=== PATIENT | female | born 1970 | race Caucasian/White ===

== ENCOUNTER → 2021-08-22 16:47 | Outpatient (CLI) | payer OTHER, SELFPAY | PROVIDERS: Referring Provider Physician Assistant; Visit Provider Physician Assistant | DX: U07.1 COVID-19 (principal) | CPT/HCPCS: 87635; U0005; U0003 ==

== ENCOUNTER 2021-08-26 18:26 | Outpatient (CLI) | payer OTHER, SELFPAY ==
[2021-08-26 18:37] VITALS: BP 130/82; PULSE 89; RESP 16; TEMP 37.4; O2SAT 98; BMI 39.5
[2021-08-26] MEDS: 0.9% Saline Lock 10 ML Syringe IV (18:44)
[2021-08-26 19:16] VITALS: BP 127/87; PULSE 84; RESP 16; TEMP 37.4; O2SAT 96
[2021-08-26 20:11] VITALS: BP 126/84; PULSE 85; RESP 16; TEMP 37.7; O2SAT 94
== END 2021-08-26 20:16 | disposition home or self-care (01) ==
LOC: MS3OUT 18:27 → MS3 18:27
PROVIDERS: Referring Provider Nurse Practitioner Adult Health; Visit Provider Nurse Practitioner Adult Health
DX: Z23 Encounter for immunization (principal); U07.1 COVID-19
CPT/HCPCS: J7050; M0245; Q0245; A4216